=== PATIENT | male | born 1955 | race Caucasian/White ===

== ENCOUNTER → 2016-09-13 | Outpatient (CLI) | payer OTHER ==
[2016-09-13 10:21] LABS: BUN/CREATININE RATIO 18 (0-10)
== END ==
LOC: OPSV 08:56
PROVIDERS: Podiatrist Foot & Ankle Surgery
DX: M86.9 Osteomyelitis, unspecified (principal); Z88.1 Allergy status to other antibiotic agents
CPT/HCPCS: 36592; 80048; 82550; 96365; J0878; J7050

== ENCOUNTER → 2016-09-14 | Outpatient (CLI) | payer OTHER | LOC: OPSV 12:00 | DX: M86.9 Osteomyelitis, unspecified (principal) | CPT/HCPCS: 96365; J0878; J7050 ==

== ENCOUNTER → 2016-09-15 | Outpatient (CLI) | payer OTHER | LOC: OPSV 12:00 | DX: M86.9 Osteomyelitis, unspecified (principal) | CPT/HCPCS: 96365; J0878; J7050 ==

== ENCOUNTER → 2016-09-16 | Outpatient (CLI) | payer OTHER | LOC: OPSV 07:33 | DX: M86.9 Osteomyelitis, unspecified (principal) | CPT/HCPCS: 96365; J0878; J7050 ==

== ENCOUNTER → 2016-09-17 | Outpatient (CLI) | payer OTHER | LOC: OPSV 07:52 | DX: M86.9 Osteomyelitis, unspecified (principal) | CPT/HCPCS: 96365; J0878; J7050 ==

== ENCOUNTER → 2016-09-18 | Outpatient (CLI) | payer OTHER | LOC: OPSV 12:00 | DX: M86.9 Osteomyelitis, unspecified (principal) | CPT/HCPCS: 96365; J0878; J7050 ==

== ENCOUNTER → 2016-09-19 | Outpatient (CLI) | payer OTHER | LOC: OPSV 12:00 | DX: M86.9 Osteomyelitis, unspecified (principal); Z88.1 Allergy status to other antibiotic agents | CPT/HCPCS: 96365; J0878; J7050 ==

== ENCOUNTER → 2016-09-20 | Outpatient (CLI) | payer OTHER ==
[2016-09-20 09:12] LABS: BUN/CREATININE RATIO 18 (0-10)
== END ==
LOC: OPSV 07:25
PROVIDERS: Podiatrist Foot & Ankle Surgery
DX: M86.9 Osteomyelitis, unspecified (principal); A52.16 Charcot's arthropathy (tabetic)
CPT/HCPCS: 36592; 78805; 80048; 82550; 96365; A9569; J0878; J7050

== ENCOUNTER → 2016-09-21 | Outpatient (CLI) | payer OTHER | LOC: OPSV 13:00 | DX: M86.9 Osteomyelitis, unspecified (principal) | CPT/HCPCS: 96365; J0878; J7050 ==

== ENCOUNTER → 2016-09-22 | Outpatient (CLI) | payer OTHER | LOC: OPSV 13:52 | DX: M86.9 Osteomyelitis, unspecified (principal); Z88.1 Allergy status to other antibiotic agents | CPT/HCPCS: 96365; J0878; J7050 ==

== ENCOUNTER → 2016-09-23 | Outpatient (CLI) | payer OTHER | LOC: OPSV 07:32 | DX: M86.9 Osteomyelitis, unspecified (principal) | CPT/HCPCS: 96365; J0878; J7050 ==

== ENCOUNTER → 2016-09-24 | Outpatient (CLI) | payer OTHER | LOC: OPSV 08:15 | DX: M86.9 Osteomyelitis, unspecified (principal) | CPT/HCPCS: 96365; J0878; J7050 ==

== ENCOUNTER → 2016-09-25 | Outpatient (CLI) | payer OTHER ==
[2016-09-25 15:06] LABS: BUN/CREATININE RATIO 24 (0-10)
== END ==
LOC: OPSV 13:49
PROVIDERS: Podiatrist Foot & Ankle Surgery
DX: M86.9 Osteomyelitis, unspecified (principal)
CPT/HCPCS: 36592; 80048; 82550; 96365; J0878; J7050

== ENCOUNTER → 2016-09-26 | Outpatient (CLI) | payer OTHER | LOC: OPSV 13:37 | DX: M86.9 Osteomyelitis, unspecified (principal) | CPT/HCPCS: 96365; J0878; J7050 ==

== ENCOUNTER → 2016-09-27 | Outpatient (CLI) | payer OTHER | LOC: OPSV 13:37 | DX: M86.9 Osteomyelitis, unspecified (principal) | CPT/HCPCS: 96365; J0878; J7050 ==

== ENCOUNTER → 2016-09-28 | Outpatient (CLI) | payer OTHER | LOC: OPSV 13:45 | DX: M86.9 Osteomyelitis, unspecified (principal) | CPT/HCPCS: 96365; J0878; J7050 ==

== ENCOUNTER → 2016-09-29 | Outpatient (CLI) | payer OTHER | LOC: OPSV 13:43 | DX: M86.9 Osteomyelitis, unspecified (principal) | CPT/HCPCS: 96365; J0878; J7050 ==

== ENCOUNTER → 2016-09-30 | Outpatient (CLI) | payer OTHER ==
[~2016-09-30] VITALS: Ht 185.4 cm; Wt 67.1 kg
== END ==
LOC: OPSV 07:29
DX: M86.9 Osteomyelitis, unspecified (principal)
CPT/HCPCS: 96365; J0878; J7050

== ENCOUNTER → 2016-10-01 | Outpatient (CLI) | payer OTHER | LOC: OPSV 08:09 | DX: M86.9 Osteomyelitis, unspecified (principal) | CPT/HCPCS: 96365; J0878; J7050 ==

== ENCOUNTER → 2016-10-02 | Outpatient (CLI) | payer OTHER ==
[~2016-10-02] VITALS: Ht 185.4 cm; Wt 67.1 kg
[2016-10-02 14:50] LABS: BUN/CREATININE RATIO 20 (0-10)
== END ==
LOC: OPSV 13:43
PROVIDERS: Podiatrist Foot & Ankle Surgery
DX: M86.9 Osteomyelitis, unspecified (principal)
CPT/HCPCS: 36592; 80048; 82550; 96365; J0878; J7050

== ENCOUNTER → 2016-10-03 | Outpatient (CLI) | payer OTHER ==
[~2016-10-03] VITALS: Ht 185.4 cm; Wt 67.1 kg
== END ==
LOC: OPSV 10-02 14:01
DX: M86.9 Osteomyelitis, unspecified (principal)
CPT/HCPCS: 96365; J0878; J7050

== ENCOUNTER → 2016-10-04 | Outpatient (CLI) | payer OTHER ==
[~2016-10-04] VITALS: Ht 185.4 cm; Wt 67.1 kg
== END ==
LOC: OPSV 13:51
DX: M86.9 Osteomyelitis, unspecified (principal)
CPT/HCPCS: 96365; J0878; J7050

== ENCOUNTER → 2016-10-05 | Outpatient (CLI) | payer OTHER | LOC: OPSV 12:00 | DX: M86.9 Osteomyelitis, unspecified (principal) | CPT/HCPCS: 96365; J0878; J7050 ==

== ENCOUNTER → 2016-10-06 | Outpatient (CLI) | payer OTHER | LOC: OPSV 13:50 | DX: M86.8X7 Other osteomyelitis, ankle and foot (principal) | CPT/HCPCS: G0463; J0878; J7050 ==